=== PATIENT | female | born 1995 | race Caucasian/White ===

== ENCOUNTER 2023-08-11 12:48 | Emergency (ER) | payer OTHER ==
[~2023-08-11] VITALS: Ht 157.5 cm; Wt 79.4 kg
[2023-08-11 13:10] VITALS: BP 121/76; PULSE 85; RESP 18; TEMP 98.3; O2SAT 98
[2023-08-11] MEDS ORDERED: NACL 0.9% 1,000 ML IV ONE (13:45)
[2023-08-11 14:20] LABS: BASOPHILS # (AUTO) 0.1 K/uL (0.00-0.22); BASOPHILS % (AUTO) 1.4 % (0.0-2.0); EOSINOPHILS # (AUTO) 0.2 K/uL (0-0.4); HEMOGLOBIN 11.3 g/dL (12.0-16.0); LYMPHOCYTES % (AUTO) 31.2 % (20.5-51.1); MEAN CORPUSCULAR HEMOGLOBIN 25 pg (27-31); MEAN CORPUSCULAR HGB CONC 32 g/dL (33-37); MEAN CORPUSCULAR VOLUME 77.4 fL (80-94); MONOCYTES # (AUTO) 0.4 K/uL (0.8-1.0); MONOCYTES % (AUTO) 6.9 % (1.7-9.3); NEUTROPHILS # (AUTO) 3.7 K/uL (1.8-7.7); NEUTROPHILS % (AUTO) 57.5 % (42.2-75.2); PLATELET COUNT (AUTO) 492 K/uL (140-450); RED BLOOD CELL COUNT(AUTO) 4.52 MIL/uL (4.20-5.40); RED CELL DISTRIBUTION WIDTH 19.4 % (11.6-13.7); WHITE BLOOD COUNT (AUTO) 6.4 K/uL (4.8-10.8)
[2023-08-11 15:24] LABS: ALBUMIN 2.7 g/dL (3.4-5.0); ANION GAP 12.3 (8-16); CALCIUM 8.1 mg/dL (8.5-10.1); CARBON DIOXIDE 25.8 mmol/L (21-32); CREATININE 0.7 mg/dL (0.6-1.3); POTASSIUM 4.1 mmol/L (3.5-5.1); TOTAL BILIRUBIN 0.1 mg/dL (0.0-1.0); TOTAL PROTEIN, SERUM 7.2 g/dL (6.4-8.2)
[2023-08-11 16:53] VITALS: BP 121/76; PULSE 85; RESP 18; TEMP 98.3; O2SAT 98
== END 2023-08-11 16:53 | disposition home or self-care (01) ==
LOC: MED 12:48
DX: R51.9 Headache, unspecified (principal); Z79.899 Other long term (current) drug therapy
CPT/HCPCS: 36415; 70470; 80053; 85025; 96360; 99285; J7030; Q9967